=== PATIENT | male | born 1940 | race African-American/Black ===

== ENCOUNTER → 2016-08-14 | Outpatient (CLI) | payer MEDICARE, OTHER ==
[~2016-08-14] MED LIST: AZIT500T5 PO; NICO-682 TD; P50 PO; PULM50 HHN; THIA100T72 PO
[2016-08-14 11:02] LABS: INR 1.1; PARTIAL THROMBOPLASTIN TIME 29.4 sec (24.0-34.0); PROTHROMBIN TIME 11.1 sec
== END | disposition home or self-care (01) ==
LOC: LAB 09:53
PROVIDERS: ATTEND Specialist
DX: C34.90 Malignant neoplasm of unspecified part of unspecified bronchus or lung (principal)
CPT/HCPCS: 36415; 85610; 85730

== ENCOUNTER → 2016-08-16 | Day surgery (SDC) | payer MEDICARE, MEDICAID ==
[~2016-08-16] VITALS: Ht 182.9 cm; Wt 65.8 kg
[2016-08-16] VITALS (13 sets, daily range): BP systolic 108–144; BP diastolic 55–74
[~2016-08-16] MED LIST changes: -AZIT500T5 PO; +CEFAZOLIN 1000MG PREMIX 50 ML IV ONE; +FENTANYL CITRATE/PF 50MCG/ML 2ML VIAL IV ONE; +FENTANYL CITRATE/PF 50MCG/ML 2ML VIAL ONE; +LIDOCAINE HCL 1% 20ML VIAL (Pyxis) INJ ONE; +LIDOCAINE HCL/EPINEPHRINE 1%-EPI 1:100,000 20 ML VIAL ONE; +NEOMY SULF/BACITRAC ZN/POLY OINT 28GM TOP SCH; -NICO-682 TD; -P50 PO; -PULM50 HHN; +SODIUM BICARBONATE 4% (2.4MEQ) 5ML VIAL IV ONE; -THIA100T72 PO
== END | disposition home or self-care (01) ==
LOC: RAD 07:19
PROVIDERS: ATTEND Specialist
DX: C34.91 Malignant neoplasm of unspecified part of right bronchus or lung (principal)
CPT/HCPCS: 36561; 36590; 76937; 77001; 99152; 99153; J0690; J3010; J3490; J7050

== ENCOUNTER 2017-02-24 19:49 | Inpatient (IN) | payer MEDICARE, OTHER ==
[~2017-02-24] VITALS: Ht 180.3 cm; Wt 54.9 kg
[2017-02-24] MEDS ORDERED: IPRATROPIUM/ALBUTEROL 0.5-3(2.5)MG/3ML NEB HHN ONE (21:00)
[2017-02-24 21:24] LABS: BASOPHILS % 0.3 % (0.0-2.0); EOSINOPHILS % 0.5 % (0.0-5.0); HEMOGLOBIN. 8.8 g/dL (14.0-18.0); MEAN CORPUSCULAR VOLUME 98.8 fL (80.0-94.0); MEAN PLATELET VOLUME 9.1 fl (7.4-10.4); MONOCYTES % 9.3 % (2.0-8.0); NEUTROPHILS % 80.9 % (40.0-76.0); PLATELET 251 x1000/uL (130-400); RED BLOOD CELL COUNT 2.83 mill/uL (4.7-6.1); RED CELL DISTRIBUTION WIDTH 17.9 % (11.6-14.6)
[2017-02-24 21:33] LABS: INR 1.1; PARTIAL THROMBOPLASTIN TIME 28.6 sec (23.4-31.0); PROTHROMBIN TIME 11.6 sec (9.4-11.6)
[2017-02-24 21:39] LABS: CARBON DIOXIDE 19 mEq/L (21-32); CHLORIDE 106 mEq/L (98-107); TROPONIN I < 0.02 ng/mL (0.00-0.04)
[2017-02-25] MEDS ORDERED: IPRATROPIUM/ALBUTEROL 0.5-3(2.5)MG/3ML NEB HHN ONE (01:30)
[2017-02-25 17:10] VITALS: BP 148/76
[2017-02-25 17:27] VITALS: BP 148/76
[2017-02-25] MEDS ORDERED: ONDANSETRON HCL 4MG/2ML VIAL IV PRN (18:00)
[2017-02-25] MEDS ORDERED: ACETAMINOPHEN 325MG TABLET PO PRN ×2 (18:00→23:00)
[2017-02-25 18:35] LABS: BG BASE EXCESS -3.2 mmol/L (-2.0-2.0); BG CARBOXYHEMOGLOBIN 0.4 % (0.5-1.5); BG FRACTION INSPIRED OXYGEN 28; BG HCO3 ACT 22.9 mmol/L (22.0-26.0); BG METHEMOGLOBIN 0.5 % (0.0-1.5); BG OXYGEN SATURATION 91.9 % (92.0-98.5); BG OXYHEMOGLOBIN 91.1 % (94.0-97.0); BG PCO2 46.2 mmHg (35.0-45.0); BG PH 7.313 (7.350-7.450); BG PO2 68.6 mmHg (75.0-100.0); BG SAMPLE SITE RIGHT RADIAL; BG TOTAL HEMOGLOBIN 8.2 g/dL (12.0-18.0); BG VENT MODE NASAL CANNULA
[2017-02-25] MEDS: ALBUTEROL (0.083%) 2.5MG/3ML NEB HHN SCH ×3 (18:45→22:28)
[2017-02-25 20:00] VITALS: BP 136/80
[2017-02-25] MEDS ORDERED: LEVOFLOXACIN 500MG PREMIX 100 ML IV NR (20:00)
[2017-02-25] MEDS ORDERED: IPRATROPIUM/ALBUTEROL 0.5-3(2.5)MG/3ML NEB HHN PRN (22:30)
[2017-02-25] MEDS ORDERED: HYDROCODONE/ACETAMINOPHEN 5/325MG TABLET PO PRN (23:00)
[2017-02-25] MEDS ORDERED: DIPHENHYDRAMINE 50MG/ML VIAL IV PRN (23:00)
[2017-02-25] MEDS ORDERED: ACETAMINOPHEN 650MG/20.3ML UDC GT PRN (23:00)
[2017-02-25] MEDS ORDERED: NA PHOS,M-B/NA PHOS,DI-BA ENEMA 118ML PR PRN (23:00)
[2017-02-25] MEDS ORDERED: DOCUSATE SODIUM 100MG CAPSULE PO PRN (23:00)
[2017-02-25] MEDS ORDERED: MAGNESIUM/ALUMINUM HYDROXIDE/SIMETHICONE 30ML UDC PO PRN (23:00)
[2017-02-25] MEDS ORDERED: ACETAMINOPHEN 650MG SUPP PR PRN (23:00)
[2017-02-25] MEDS ORDERED: GUAIFENESIN 200MG/10ML SUGAR FREE UDC PO PRN (23:00)
[2017-02-25] MEDS ORDERED: CLONIDINE 0.1MG TABLET PO PRN (23:00)
[2017-02-25] MEDS: METHYLPREDNISOLONE SOD SUCC 40 MG/ML VIAL IV SCH (23:05)
[2017-02-25 23:57] LABS: CLARITY URINE CLEAR (CLEAR); COLOR URINE YELLOW (YELLOW); KETONES URINE NEGATIVE (NEGATIVE); LEUKOCYTE ESTERASE URINE NEGATIVE (NEGATIVE); NITRITE URINE NEGATIVE (NEGATIVE); OCCULT BLOOD URINE 1+ (NEGATIVE); PROTEIN URINE 3+ (NEGATIVE); SPECIFIC GRAVITY URINE 1.017 (1.005-1.030); UROBILINOGEN URINE 0.2 E.U./dL (0.2-1.0)
[2017-02-26] VITALS: BP 127/54
[2017-02-26 00:18] LABS: HEMATOCRIT. 23.6 % (42.0-52.0); HEMOGLOBIN. 7.5 g/dL (14.0-18.0); MEAN CORPUSCULAR HEMOGLOBIN 30.8 pg (28.0-32.0); MEAN CORPUSCULAR VOLUME 97.5 fL (80.0-94.0); PLATELET 213 x1000/uL (130-400); RED BLOOD CELL COUNT 2.42 mill/uL (4.7-6.1); RED CELL DISTRIBUTION WIDTH 18.1 % (11.6-14.6)
[2017-02-26 00:39] LABS: CARBON DIOXIDE 22 mEq/L (21-32); CHLORIDE 107 mEq/L (98-107)
[2017-02-26] MEDS: ALBUTEROL (0.083%) 2.5MG/3ML NEB HHN SCH ×6 (00:53→21:04)
[2017-02-26 04:00] VITALS: BP 109/57
[2017-02-26] MEDS: METHYLPREDNISOLONE SOD SUCC 40 MG/ML VIAL IV SCH ×3 (06:24→23:40)
[2017-02-26] MEDS: SODIUM CHLORIDE 0.9% INJ 3ML FLUSH IVF SCH ×3 (06:24→23:40)
[2017-02-26 07:08] LABS: HEMATOCRIT. 22.5 % (42.0-52.0); HEMOGLOBIN. 7.1 g/dL (14.0-18.0); MEAN CORPUSCULAR HEMOGLOBIN 30.7 pg (28.0-32.0); MEAN CORPUSCULAR VOLUME 97.6 fL (80.0-94.0); PLATELET 219 x1000/uL (130-400); RED BLOOD CELL COUNT 2.31 mill/uL (4.7-6.1); RED CELL DISTRIBUTION WIDTH 17.9 % (11.6-14.6)
[2017-02-26 07:38] LABS: PLATELET ESTIMATE NORMAL
[2017-02-26 07:46] LABS: CARBON DIOXIDE 21 mEq/L (21-32); CHLORIDE 107 mEq/L (98-107); LDL CHOLESTEROL 36 mg/dL (5-100)
[2017-02-26 07:48] LABS: HDL CHOLESTEROL 73 mg/dL (40-59)
[2017-02-26 08:00] VITALS: BP 125/59
[2017-02-26 12:00] VITALS: BP 101/50
[2017-02-26 16:00] VITALS: BP 122/60
[2017-02-26] MEDS ORDERED: LEVOFLOXACIN 250MG PREMIX 50 ML IV SCH (18:00)
[2017-02-26] MEDS ORDERED: NICOTINE 21MG PATCH TD NR (18:30)
[2017-02-26 20:00] VITALS: BP 117/59
[2017-02-26] MEDS: AZITHROMYCIN 500 MG TABLET PO SCH (20:46)
[2017-02-26 21:00] LABS: PLATELET ESTIMATE NORMAL
[2017-02-26] MEDS: BUDESONIDE 0.5MG/2ML NEB HHN SCH (21:04)
[2017-02-27] VITALS (7 sets, daily range): BP systolic 113–138; BP diastolic 57–71
[2017-02-27] MEDS: ALBUTEROL (0.083%) 2.5MG/3ML NEB HHN SCH ×6 (00:57→22:42)
[2017-02-27] MEDS: SODIUM CHLORIDE 0.9% INJ 3ML FLUSH IVF SCH ×3 (05:49→22:21)
[2017-02-27] MEDS: METHYLPREDNISOLONE SOD SUCC 40 MG/ML VIAL IV SCH ×3 (05:49→22:21)
[2017-02-27] MEDS: IPRATROPIUM/ALBUTEROL 0.5-3(2.5)MG/3ML NEB INH PRN (08:15)
[2017-02-27] MEDS: FOLIC ACID 1MG TABLET PO SCH (10:27)
[2017-02-27] MEDS: AZITHROMYCIN 500 MG TABLET PO SCH (10:27)
[2017-02-27] MEDS: THIAMINE HCL 100MG TABLET PO SCH (10:27)
[2017-02-27] MEDS: MULTIVITAMINS,THER W-MINERALS TABLET PO SCH (10:27)
[2017-02-27] MEDS: NICOTINE 21MG PATCH TD SCH (10:27)
[2017-02-27] MEDS: BUDESONIDE 0.5MG/2ML NEB HHN SCH (11:33)
[2017-02-27] MEDS ORDERED: AZIT500T5 PO (15:52)
[2017-02-27] MEDS ORDERED: THIA100T72 PO (15:52)
[2017-02-27] MEDS ORDERED: PULM50 HHN (15:52)
[2017-02-27] MEDS ORDERED: NICO-682 TD (15:52)
[2017-02-27] MEDS ORDERED: P50 PO (15:52)
[2017-02-27 20:26] LABS: BASOPHILS % 0.2 % (0.0-2.0); HEMATOCRIT. 21.4 % (42.0-52.0); LYMPHOCYTES % 3.3 % (20.0-50.0); MEAN CORPUSCULAR VOLUME 99.7 fL (80.0-94.0); MEAN PLATELET VOLUME 9.1 fl (7.4-10.4); MONOCYTES % 3.7 % (2.0-8.0); NEUTROPHILS % 92.8 % (40.0-76.0); PLATELET 234 x1000/uL (130-400); RED BLOOD CELL COUNT 2.15 mill/uL (4.7-6.1); RED CELL DISTRIBUTION WIDTH 17.8 % (11.6-14.6)
[2017-02-27 20:33] LABS: CARBON DIOXIDE 22 mEq/L (21-32); CHLORIDE 108 mEq/L (98-107)
[2017-02-27 20:40] LABS: HEMOGLOBIN. 6.9 g/dL (14.0-18.0)
[2017-02-28] MEDS: ALBUTEROL (0.083%) 2.5MG/3ML NEB HHN SCH ×5 (01:37→21:04)
[2017-02-28 04:00] VITALS: BP 105/55
[2017-02-28] MEDS: SODIUM CHLORIDE 0.9% INJ 3ML FLUSH IVF SCH ×3 (05:22→22:36)
[2017-02-28] MEDS: METHYLPREDNISOLONE SOD SUCC 40 MG/ML VIAL IV SCH ×3 (05:22→22:36)
[2017-02-28 07:30] LABS: HEMATOCRIT 23.5 % (42.0-52.0); HEMOGLOBIN 7.5 g/dL (14.0-18.0)
[2017-02-28 08:00] VITALS: BP 134/62
[2017-02-28] MEDS: AZITHROMYCIN 500 MG TABLET PO SCH (08:41)
[2017-02-28] MEDS: NICOTINE 21MG PATCH TD SCH (08:41)
[2017-02-28] MEDS: FOLIC ACID 1MG TABLET PO SCH (08:42)
[2017-02-28] MEDS: THIAMINE HCL 100MG TABLET PO SCH (08:42)
[2017-02-28] MEDS: MULTIVITAMINS,THER W-MINERALS TABLET PO SCH (08:42)
[2017-02-28] MEDS: BUDESONIDE 0.5MG/2ML NEB HHN SCH ×3 (09:28→21:05)
[2017-02-28 12:00] VITALS: BP 132/57
[2017-02-28] MEDS: IPRATROPIUM/ALBUTEROL 0.5-3(2.5)MG/3ML NEB INH PRN (12:18)
[2017-02-28 16:00] VITALS: BP 129/59
[2017-02-28] MEDS ORDERED: SODIUM POLYSTYRENE SULFONATE 15 G/60 ML BOT PO NR (16:00)
[2017-02-28] MEDS: SODIUM CHLORIDE 0.45% 1,000 ML IV SCH (16:32)
[2017-02-28 20:00] VITALS: BP 150/65
[2017-03-01] VITALS (7 sets, daily range): BP systolic 126–153; BP diastolic 54–76
[2017-03-01] MEDS: ALBUTEROL (0.083%) 2.5MG/3ML NEB HHN SCH ×6 (00:47→21:25)
[2017-03-01] MEDS: METHYLPREDNISOLONE SOD SUCC 40 MG/ML VIAL IV SCH ×3 (06:08→22:04)
[2017-03-01] MEDS: SODIUM CHLORIDE 0.9% INJ 3ML FLUSH IVF SCH ×3 (06:08→21:05)
[2017-03-01 07:02] LABS: MEAN CORPUSCULAR HEMOGLOBIN 33.1 pg (28.0-32.0); MEAN CORPUSCULAR VOLUME 102.3 fL (80.0-94.0); PLATELET 224 x1000/uL (130-400); RED BLOOD CELL COUNT 2.03 mill/uL (4.7-6.1); RED CELL DISTRIBUTION WIDTH 17.5 % (11.6-14.6)
[2017-03-01 07:59] LABS: HEMOGLOBIN. 6.7 g/dL (14.0-18.0)
[2017-03-01 08:00] LABS: HEMATOCRIT. 20.8 % (42.0-52.0)
[2017-03-01] MEDS: BUDESONIDE 0.5MG/2ML NEB HHN SCH ×2 (08:17→21:25)
[2017-03-01 08:20] LABS: IMMUNOGLOBULIN A 529 mg/dL (61-437); IMMUNOGLOBULIN G 1120 mg/dL (700-1600); IMMUNOGLOBULIN M 32 mg/dL (15-143)
[2017-03-01] MEDS: AZITHROMYCIN 500 MG TABLET PO SCH (08:33)
[2017-03-01] MEDS: THIAMINE HCL 100MG TABLET PO SCH (08:33)
[2017-03-01] MEDS: MULTIVITAMINS,THER W-MINERALS TABLET PO SCH (08:33)
[2017-03-01] MEDS: FOLIC ACID 1MG TABLET PO SCH (08:33)
[2017-03-01] MEDS: NICOTINE 21MG PATCH TD SCH (08:35)
[2017-03-01] MEDS: SODIUM CHLORIDE 0.45% 1,000 ML IV SCH (08:44)
[2017-03-01 14:16] LABS: PLATELET ESTIMATE NORMAL
[2017-03-01 15:58] LABS: HEMATOCRIT. 25.9 % (42.0-52.0); HEMOGLOBIN. 8.5 g/dL (14.0-18.0); MEAN CORPUSCULAR HEMOGLOBIN 32.4 pg (28.0-32.0); MEAN CORPUSCULAR VOLUME 98.7 fL (80.0-94.0); MEAN PLATELET VOLUME 8.8 fl (7.4-10.4); PLATELET 220 x1000/uL (130-400); RED BLOOD CELL COUNT 2.62 mill/uL (4.7-6.1); RED CELL DISTRIBUTION WIDTH 17.8 % (11.6-14.6)
[2017-03-01 18:04] LABS: NUCLEATED RED BLOOD CELLS 2 /100 WBC; PLATELET ESTIMATE NORMAL
== END 2017-03-01 23:30 | DRG 180 ==
LOC: ER 19:49 → ENRESERV 02-25 16:29 → 7WST 02-25 16:29
PROVIDERS: ADMIT Family Medicine; ATTEND Family Medicine
PROC: 5A09357 Assistance with Respiratory Ventilation, Less than 24 Consecutive Hours, Continuous Positive Airway Pressure (ICD-10-PCS; principal; 2017-02-25)
PROC: 30233N1 Transfusion of Nonautologous Red Blood Cells into Peripheral Vein, Percutaneous Approach (ICD-10-PCS; 2017-03-01)
DX: C34.90 Malignant neoplasm of unspecified part of unspecified bronchus or lung (principal); N17.0 Acute kidney failure with tubular necrosis; E43 Unspecified severe protein-calorie malnutrition; J96.01 Acute respiratory failure with hypoxia; J44.1 Chronic obstructive pulmonary disease with (acute) exacerbation; Z68.1 Body mass index [BMI] 19.9 or less, adult; E11.22 Type 2 diabetes mellitus with diabetic chronic kidney disease; D63.0 Anemia in neoplastic disease; D72.829 Elevated white blood cell count, unspecified; N18.9 Chronic kidney disease, unspecified; I12.9 Hypertensive chronic kidney disease with stage 1 through stage 4 chronic kidney disease, or unspecified chronic kidney disease; F17.210 Nicotine dependence, cigarettes, uncomplicated; Z91.19 Patient's noncompliance with other medical treatment and regimen; Z92.21 Personal history of antineoplastic chemotherapy; Z92.3 Personal history of irradiation; F10.10 Alcohol abuse, uncomplicated
CPT/HCPCS: 36415; 36600; 71045; 76770; 80048; 80053; 80061; 81001; 82270; 82375; 82378; 82784; 82805; 83690; 84484; 85014; 85018; 85025; 85610; 85730; 86334; 86850; 86900; 86920; 93005; 93970; 94640; 94664; 97116; 97162; 97166; 97530; 99291; J1956; J2920; J7050; J7611; J7620; J7626; P9016